=== PATIENT | female | born 1985 | race Two or more races ===

== ENCOUNTER 2024-11-06 21:43 | Emergency (ER) | payer BC, SELFPAY ==
--- NOTE | ~2024-11-06 | XR_ITS ---
EXAMINATION: XR chest 2V Exam Date/Time: 11/06/2024 22:01 CDT HISTORY: chest pain Comparison: None. RESULT: Lines, tubes, and devices: None. Lungs and pleura: Clear. Cardiomediastinal silhouette: Normal. Other: No acute osseous or upper abdominal finding. IMPRESSION: No acute cardiopulmonary process. Reviewed, dictated and finalized at location K.
--- NOTE | 2024-11-06 21:52 | ECG_ITS ---
Test Date: 2024-11-06 21:57:32 Measurements Intervals Ideal Rate: 109 P: 72 IA: 135 QRS: 76 QRSD: 73 T: 48 QT: 317 QTc: 427 Interpretive Statements SINUS TACHYCARDIA POSSIBLE LEFT ATRIAL ENLARGEMENT [-0.1mV P WAVE IN V1/V2] No previous ECG available for comparison Electronically Signed On 11-07-2024 14:45:35 CDT by Melquiades Valente M.D.
[2024-11-06 21:57] VITALS: BP 167/95; PULSE 102; RESP 16; TEMP 36.6; O2SAT 100
[2024-11-06 22:06] VITALS: O2SAT 100
[2024-11-06 22:10] LABS: Basophils Absolute Auto 0.1 K/mm3 (0.0-0.1); Basophils Percent Auto 0.6 % (0.2-1.2); Eosinophils Absolute Auto 0.2 K/mm3 (0-0.3); Eosinophils Percent Auto 1.9 % (0-4.4); Hematocrit 39.9 % (37.0-47.0); Hemoglobin 12.8 g/dL (12.0-15.0); Immature Granulocyte Absolute 0.02 K/mm3 (0.00-0.031); Immature Granulocyte Percent A 0.2 % (0-0.5); Lymphocytes Absolute Auto 3.52 K/mm3 (0.9-3.2); Lymphocytes Percent Auto 42.3 % (18.3-44.2); Mean Corpuscular HGB Conc 32.1 g/dl (32-36); Mean Corpuscular Hemoglobin 24.4 pg (26-34); Mean Corpuscular Volume 76.1 fl (80-100); Mean Platelet Volume 8.6 fl (7.4-10.4); Monocytes Absolute Auto 0.7 K/mm3 (0.1-0.6); Monocytes Percent Auto 8.1 % (2.6-8.5); Neutrophils Absolute Auto 3.9 K/mm3 (1.3-6.7); Neutrophils Percent Auto 46.9 % (45.5-73.1); Platelet Count Result 310 k/mm3 (150-375); Red Blood Count 5.24 M/mm3 (4.2-5.4); Red Cell Distribution Width 15.1 % (11.5-14.5); White Blood Count 8.3 K/mm3 (4.5-10.0)
[2024-11-06 22:23] LABS: Prothrombin Time 13.9 Seconds (11.1-14.7)
[2024-11-06 22:24] LABS: Partial Thromboplastin Time 33.1 Seconds (22.3-36.8)
[2024-11-06 22:26] LABS: Alanine Aminotransferase 33 U/L (6-35); Albumin Level 4.5 g/dL (3.5-5.1); Alkaline Phosphatase 81 U/L (38-126); Anion Gap 10 mmol/L (4-12); Aspartate Amino Transferase 34 U/L (14-36); Bilirubin,Total 0.4 mg/dL (0.2-1.3); Blood Urea Nitrogen 18 mg/dL (7-17); Calcium 9.4 mg/dL (8.4-10.2); Carbon Dioxide 25 mmol/L (22-30); Chloride 101 mmol/L (98-107); Estimated CRCL calculation 98 ml/min; Estimated Glomerular Filt Rate > 60; Glucose 103 mg/dL (65-110); Lipase 186 U/L (23-300); Potassium 3.5 mmol/L (3.4-5.0); Sodium 136 mmol/L (137-145)
[2024-11-06 22:38] LABS: Troponin I < 0.012 ng/mL (0.000-0.034)
[2024-11-06] MEDS: ASPIRIN 81 MG CHEWABLE TABLET 324 MG PO (22:40)
--- NOTE | 2024-11-06 22:53 | ED_ITS ---
HPI - Chest Pain General Chief Complaint: Chest Pain Stated Complaint: BP 169/95 Chest pain- intermittent stabbing Time Seen by Provider: 11/06/24 22:41 History of Present Illness HPI narrative: Patient is a 39-year-old female who presents emergency department this evening complaining of chest pain and heart palpitation. Patient states that the chest pain started earlier in the evening and the palpitations started approximately 1 hour ago when patient went to lay down and she felt her heart racing. Denies any similar symptoms in the past. Denies any history of cardiovascular disease. Patient admits that she does have a history of depression and takes medications for that. Denies any recent illness, any fevers or chills, any nausea vomiting or abdominal pain. No additional symptoms or concerns at this time. Related Data Home Medications ?Medication ?Instructions ?Recorded ?Confirmed ?Last Taken ?Type No Home Medications 11/06/24 11/06/24 Unknown History Allergies Allergy/AdvReac Type Severity Reaction Status Date / Time Penicillins Allergy Intermediate Rash Verified 11/06/24 21:59 Review of Systems 2 Review of Systems: All systems are reviewed and are negative unless stated otherwise in the HPI. Exam 2 Narrative: General: Alert, awake, afebrile, in no acute distress, anxious. HEENT: PERRL, no rhinorrhea, no post nasal drip, oropharynx clear. Neck: Trachea midline, no JVD, no lymphadenopathy. Cardiovascular: Regular rate and rhythm, no murmurs, rubs or gallops, no peripheral edema. Respiratory: Clear to auscultation bilaterally, no tachypnea, no wheezing, no rhonchi, no rubs, no respiratory distress. Abdomen: Soft, nontender, nondistended, no rebound, no guarding, no peritoneal signs. Musculoskeletal: No joint swelling or deformity, normal muscle tone. Skin: No rashes or petechia, no signs of infection. Psychiatric: Alert and oriented, normal behavior and judgment for situation. Neurological: Alert and oriented to person, place, and time. Follows all commands. No focal deficits, speech is clear and fluent. Course Vital Signs Vital signs: Vital Signs Temperature 98 F 11/06/24 21:57 Pulse Rate 102 H 11/06/24 21:57 Respiratory Rate 16 11/06/24 21:57 Blood Pressure 167/95 H 11/06/24 21:57 Pulse Oximetry 100 11/06/24 21:57 Oxygen Delivery Room Air 11/06/24 21:57 Temperature 98 F 11/06/24 21:57 Pulse Rate 102 H 11/06/24 21:57 Respiratory Rate 16 11/06/24 21:57 Blood Pressure 167/95 H 11/06/24 21:57 Pulse Oximetry 100 11/06/24 22:06 Oxygen Delivery Room Air 11/06/24 22:06 MDM - Chest Pain MDM Narrative Medical decision making narrative: The patient was evaluated by myself in the emergency department. History is obtained from patient who is an independent historian and physical exam was performed. External medical records were reviewed at this time. IV was established and pertinent tests were ordered. EKG was obtained which revealed sinus tachycardia rate of 109 beats per minute. No ST changes, T wave inversions or evidence of acute ischemia. EKG was independently interpreted by me and is currently pending official cardiology read. Laboratory results obtained revealing no acute process. 2 sets of troponins were obtained 3 hours apart and both noted to be negative. Imaging studies obtained included CXR which was independently interpreted by me revealing no acute cardiopulmonary process, which is pending final radiology interpretation. Differential diagnosis considerations include acute coronary syndrome, stress reaction, anxiety, infectious process such as pneumonia, acute viral syndrome. Comorbidities impacting this visit include none. I have evaluated and discussed social determinants of health with the patient that could potentially impact subsequent diagnosis and treatment plans. On repeat assessment of the patient, reevaluation revealed that the patient is doing well and is in no acute distress. Patient symptoms have improved since she arrived to our emergency department. Repeat vital signs were all reviewed and noted to be stable. Differential diagnosis and treatment plan were discussed with the patient at bedside. Patient agrees with discussion and after shared medical decision making agrees with discharge. All questions were answered to the patient's satisfaction. Patient will follow up with cardiology in 3-5 days. Patient was provided with strict return precautions and instructed to return to the emergency department if any new or worsening symptoms develop. The patient was discharged in stable condition. Lab Data 11/06/24 22:04 11/06/24 22:04 Labs: Lab Results 11/06/24 11/07/24 Range/Units 22:04 00:56 WBC 8.3 (4.5-10.0) K/mm3 RBC 5.24 (4.2-5.4) M/mm3 Hgb 12.8 (12.0-15.0) g/dL Hct 39.9 (37.0-47.0) % MCV 76.1 L (80-100) fl MCH 24.4 L (26-34) pg MCHC 32.1 (32-36) g/dl RDW 15.1 H (11.5-14.5) % Plt Count 310 (150-375) k/mm3 MPV 8.6 (7.4-10.4) fl Immature Gran % (Auto) 0.2 (0-0.5) % Neut % (Auto) 46.9 (45.5-73.1) % Lymph % (Auto) 42.3 (18.3-44.2) % [place] % (Auto) 8.1 (2.6-8.5) % Eos % (Auto) 1.9 (0-4.4) % Baso % (Auto) 0.6 (0.2-1.2) % Lymph # (Auto) 3.52 H (0.9-3.2) K/mm3 [place] # (Auto) 0.7 H (0.1-0.6) K/mm3 Eos # (Auto) 0.2 (0-0.3) K/mm3 Baso # (Auto) 0.1 (0.0-0.1) K/mm3 Abs Immat Gran (auto) 0.02 (0.00-0.031) K/mm3 Absolute Neuts (auto) 3.9 (1.3-6.7) K/mm3 Absolute Nucleated RBC 0.000 (0.0-0.012) K/mm3 Nucleated RBC % 0.0 (0.0-0.2) % PT 13.9 (11.1-14.7) Seconds INR 1.0 APTT 33.1 (22.3-36.8) Seconds Sodium 136 L (137-145) mmol/L Potassium 3.5 (3.4-5.0) mmol/L Chloride 101 (98-107) mmol/L Carbon Dioxide 25 (22-30) mmol/L Anion Gap 10 (4-12) mmol/L BUN 18 H (7-17) mg/dL Creatinine 0.71 (0.7-1.0) mg/dL Estim Creat Clear Calc 98 ml/min Estimated GFR > 60 (59 - ) Glucose 103 (65-110) mg/dL Calcium 9.4 (8.4-10.2) mg/dL Total Bilirubin 0.4 (0.2-1.3) mg/dL AST 34 (14-36) U/L ALT 33 (6-35) U/L Alkaline Phosphatase 81 (38-126) U/L Troponin I < 0.012 < 0.012 (0.000-0.034) ng/mL Total Protein 8.0 (6.3-8.2) g/dL Albumin 4.5 (3.5-5.1) g/dL Lipase 186 (23-300) U/L Discharge Plan Discharge Clinical Impression: Atypical chest pain, Heart palpitations Patient Disposition: Home, Self-Care Condition: Improved Instructions: Antibiotic Form, Chest Pain (ED) Additional Instructions: Please follow-up with the manager market research to a provided with today, call tomorrow to set up a follow-up appointment to be seen within the next 3-5 days. Return to the emergency department if any new or worsening symptoms develop. Patient Language: Swedish Prescriptions: No Action No Home Medications Follow-up/Referrals: PHYSICIAN NOT ON STAFF,NONSTAFF [Primary Care Provider] - Melquiades Valente MD [Physician] - 3 Days Time of Disposition: 01:58
[2024-11-06] MEDS: SODIUM CHLORIDE 0.9% IV 1,000 ML 999 ML IV CONT (23:05)
--- OUTSIDE RECORDS SUMMARY | 2024-11-06 23:06 | XMS_ITS | Clinical Summary ---
Author Organization [facility] Address [address] [place] [id number] Care Team Providers Care [employer]p [employer] Developer Name Role Phone Jodi Garcia MD Primary Care Provider [phone] Social History Tobacco Use Types Packs/Day Years Used Date Smoking Tobacco: Never Assessed Comments Unknown Sex and Gender Information Value Date Recorded Sex Assigned at Not on file Legal Sex Female 10:22 PM [employer]YE [employer] Gender Identity Not on file Sexual Orientation Not on file Plan of Treatment Health Maintenance Due Date Last Done Comments Cervical Cancer Screening Pa p Smear (Age 30 to 64) Every 3 Years 1986 Annual Physical 1989 Hepatitis C 2004 DTaP, Tdap and Td Vaccines ( 1 - Tdap) 2005 Hepatitis B Vaccines (1 of 3 - 19+ 3-dose series) 2005 Cervical Cancer Screening Pa p with HPV Testing (Age 30 to 64) Every 5 Years 2016 Cervical Cancer Screening with HPV 2016 COVID-19 Vaccine (2023-2 5 season) 2024 Influenza Adult (#1) 2024 HPV Vaccines Aged Out No longer eligi ble based on patient's age to complete this topic Meningococcal B Vaccine Aged Out No l onger eligible based on patient's age to complete this topic Meningococcal Vaccine Aged Out No grayson maranda eligible based on patient's age to complete this topic Pneumococcal Vaccine: Pediat rics (0 to 5 Years) and At-Risk Patients (6 to 64 Years) Aged Out No longer eligible b ased on patient's age to complete this topic RSV Immunizations Under 20 Months Aged Out No longer eligible based on patient's age to complete this topic Insurance [facility] Care Teams Php Magento Developer Relationship Specialty Start Date End Date Jodi Garcia MD [address] [place] [address] [place] [address] PCP - General FAMILY PRACTICE 02/17/22
--- OUTSIDE RECORDS SUMMARY | 2024-11-06 23:06 | XMS_ITS | Data Portability ---
Author Organization [place] - [facility] [employer], Main Office Address [address] [place] [address] Assessment No assessment recorded. Plan of Treatment Reminders Order Date Submit Date Provider Last Modified By Organization Details Last Modified Time Details Appointments None recorded. Lab lipid panel, serum 2024 025 [facility] (Lab), [address] [place], [address], 5 14:25:29 TSH, serum or plasma 2024 025 [facility] (Lab), [address] [place], [address], 5 14:25:29 vitamin D, 25-hydroxy , total, serum 2024 025 [facility] (Lab), [address] [place], [address], 5 02:47:42 CMP, serum or plasma 2024 025 [facility] (Lab), [address] [place], [address], 5 02:47:42 glycohemog lobin, total, blood 2024 025 [facility] (Lab), [address] [place], [address], 5 14:25:30 iron + total iron-selena ng capacity (TIBC), serum 2024 025 [facility] (Lab), [address] [place], [address], 5 14:25:30 CBC w/ auto diff 2024 025 [facility] (Lab), [address] [place], [address], 5 14:25:29 vitamin D, 25-hydroxy , total, serum 2022 024 [email or web address] Not available 4 16:00:01 bacterial vaginosis + vaginitis panel, vaginal - Yeast, BV 2022 023 [email or web address] [facility] (Lab), [address] [place], [address], 3 17:44:45 urinalysis , dipstick 2022 023 [facility] [address], [place], [address], 3 12:58:07 lipid panel, serum 2022 023 [email or web address] [facility] (Lab), [address] [place], [address], 3 12:59:47 CMP, serum or plasma 2022 023 [email or web address] 1 [facility] (Lab), [address] [place], [address], 3 12:58:56 HbA1c (hemoglobi n A1c), blood 2022 023 [email or web address] 1 [facility] (Lab), [address] [place], [address], 3 12:59:15 CBC 2022 023 [email or web address] 1 [facility] (Lab), [address] [place], [address], 3 13:00:06 iron + TIBC + ferritin, serum 2022 023 [email or web address] 1 [facility] (Lab), [address] [place], [address], 3 13:00:26 TSH, serum, reflex free T4 2022 023 [email or web address] 1 [facility] (Lab), [address] [place], [address], 3 13:00:50 vitamin B12 + folate, serum or blood 2022 023 [email or web address] 1 [facility] (Lab), [address] [place], [address], 3 13:01:07 vitamin D, 25-hydroxy , total, serum 2022 023 [email or web address] 1 [facility] (Lab), [address] [place], [address], 3 13:01:[address] referral 2022 023 HIREN Felipe, [address], [place], [address], 3 10:39:46 Procedures None recorded. Surgeries None recorded. Imaging MAMMO, screening, digital, bilateral - Please call patient to schedule. 2024 025 [facility] ([facility] Sched[facility]), [address] [place], [address], 5 09:31:15 MAMMO, screening, digital, bilateral - family h/o early breast cancer 2022 023 [email or web address] [id number] Not available 3 08:57:49 Medication Orders ergocalcif addie (vitamin D2) 1,250 mcg (50,000 unit) capsule 2024 025 [id number], [address], [place], [place], [id number], 5 14:25:27 lisinopril 10 mg tablet 2024 025 [facility] #[id number], [address], [place], [place], [id number], 5 14:25:25 metronidaz ole 500 mg tablet [email or web address]armacy #[id number], [address], [address], 3 16:00:08 fluconazol e 150 mg tablet 2022 023 [email or web address] [facility]/Pharmacy #[id number], [address], [address], 3 16:00:10 Patient TargetsNo targets recorded. Patient InstructionsNo instructions recorded. 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 Referring Physician: Cathy Del Cid, Family Medicine, Encounter Date: 02/26/2023 Results Created Date Observation Date Name Description Value Unit Range Abnormal Flag Note LastModifiedBy Organization Detail LastModifiedTime 09/17/1909/17/2022 urina lysis , dipst ick Leukocytes (reference range: negative colette/ l) Negati ve Not Available [email or web address] [address] , [place], [address], 09/17/2022 11:37:48 09/17/1909/17/2022 urina lysis , dipst ick Nitrite (reference rage: negative mg/dl) negati ve Not Available [address] , [place], [address], 09/17/2022 11:37:48 09/17/19 23 09/17/2022 urina lysis , dipst ick Urobilinogen (reference range: 0.2-1 mg/dl) 0.2 Not Available [address], [place], [address], 09/17/2022 11:37:48 09/17/1909/17/2022 urina lysis , dipst ick Protein (reference range: negative mg/dl) Trace Not Available [address] , [place], [address], 09/17/2022 11:37:48 09/17/1909/17/2022 urina lysis , dipst ick pH (reference range: 5-7) 6.0 Not Available [address] , [place], [address], 09/17/2022 11:37:48 09/17/1909/17/2022 urina lysis , dipst ick Blood (reference range: negative Marino/ l) Hemoly zed: Trace Not Available [address], [place], [address], 09/17/2022 11:37:48 09/17/1909/17/2022 urina lysis , dipst ick Specific [place] (reference range: 1.005-1.030) 1.025 Not Available [place] [address], [place], [address], 09/17/2022 11:37:48 09/17/1909/17/2022 urina lysis , dipst ick Ketone (reference range: negative mg/dl) Negati ve Not Available [address] , [place], [address], 09/17/2022 11:37:48 09/17/19 23 09/17/2022 urina lysis , dipst ick Bilirubin (reference range: negative mg/dl) Negati ve Not Available [address] , [place], [address], 09/17/2022 11:37:48 09/17/1909/17/2022 urina lysis , dipst ick Glucose (reference range: negative mg/dl) Negati ve Not Available [address] , [place], [address], 09/17/2022 11:37:48 09/17/19 23 09/17/2022 urina lysis , dipst ick Appearance Clear Not Available [address] , [place], [address], 09/17/2022 11:37:48 09/17/19 23 09/17/2022 urina lysis , dipst ick Color Dark Yellow Not Available [address] , [place], [address], 09/17/2022 11:37:48 09/17/19 23 09/18/2022 URINA LYSIS COMPL ETE/I RIS W/RFX leukocytes negati ve colette/u L negati ve- Not Available [facility] (Lab) [address] [place], [address], 09/18/2022 14:58:12 09/17/19 23 09/18/2022 URINA LYSIS COMPL ETE/I RIS W/RFX color yellow Not Available [facility] (Lab) [address] [place], [address], 09/18/2022 14:58:12 09/17/19 23 09/18/2022 URINA LYSIS COMPL ETE/I RIS W/RFX appear turbid abnormal Not Available [facility] (Lab) [address] [place], [address], 09/18/2022 14:58:12 09/17/19 23 09/18/2022 URINA LYSIS COMPL ETE/I RIS W/RFX specific gravity 1.030 1.001- 1.030 Not Available [facility] (Lab) [address] [place], [address], 09/18/2022 14:58:12 09/17/19 23 09/18/2022 URINA LYSIS COMPL ETE/I RIS W/RFX pH 5.5 pH_un its 5.0-9. 0 Not Available [facility] (Lab) [address] [place], [address], 09/18/2022 14:58:12 09/17/19 23 09/18/2022 URINA LYSIS COMPL ETE/I RIS W/RFX nitrite negati ve negati ve- Not Available [facility] (Lab) [address] [place], [address], 09/18/2022 14:58:12 09/17/19 23 09/18/2022 URINA LYSIS COMPL ETE/I RIS W/RFX protein 20 mg/dL negati ve- abnormal Not Available [facility] (Lab) [address] [place], [address], 09/18/2022 14:58:12 09/17/19 23 09/18/2022 URINA LYSIS COMPL ETE/I RIS W/RFX glucose normal mg/dL normal - Not Available [facility] (Lab) [address] [place], [address], 09/18/2022 14:58:12 09/17/19 23 09/18/2022 URINA LYSIS COMPL ETE/I RIS W/RFX ketones negati ve mg/dL negati ve- Not Available [facility] (Lab) [address] [place], [address], 09/18/2022 14:58:12 09/17/19 23 09/18/2022 URINA LYSIS COMPL ETE/I RIS W/RFX urobilinogen normal mg/dL normal - Not Available [facility] (Lab) [address] [place], [address], 09/18/2022 14:58:12 09/17/19 23 09/18/2022 URINA LYSIS COMPL ETE/I RIS W/RFX bilirubin negati ve mg/dL negati ve- Not Available [facility] (Lab) [address] [place], [address], 09/18/2022 14:58:12 09/17/19 23 09/18/2022 URINA LYSIS COMPL ETE/I RIS W/RFX blood 0.03 mg/dL negati ve- abnormal Not Available [facility] (Lab) [address] [place], [address], 09/18/2022 14:58:12 09/17/19 23 09/18/2022 URINA LYSIS COMPL ETE/I RIS W/RFX white blood cells 0-8 /i??h pfi?? 0-8 Not Available [facility] (Lab) [address] [place], [address], 09/18/2022 14:58:12 09/17/19 23 09/18/2022 URINA LYSIS COMPL ETE/I RIS W/RFX red blood cells 0-4 /i??h pfi?? 0-4 Not Available [facility] (Lab) [address] [place], [address], 09/18/2022 14:58:12 09/17/19 23 09/18/2022 URINA LYSIS COMPL ETE/I RIS W/RFX bacteria occasi onal abnormal Not Available [facility] (Lab) [address] [place], [address], 09/18/2022 14:58:12 09/17/19 23 09/18/2022 URINA LYSIS COMPL ETE/I RIS W/RFX mucous few /i??l pfi?? abnormal Not Available [facility] (Lab) [address] [place], [address], 09/18/2022 14:58:12 09/17/19 23 09/18/2022 URINA LYSIS COMPL ETE/I RIS W/RFX squamous epithelial packed field /i??l pfi?? abnormal Not Available [facility] (Lab) [address] [place], [address], 09/18/2022 14:58:12 09/17/19 23 09/17/2022 URINA LYSIS COMPL ETE/I RIS W/RFX leukocytes negati ve colette/u L negati ve- Not Available [facility] (Lab) [address] [place], [address], 09/17/2022 20:01:36 09/17/19 23 09/17/2022 URINA LYSIS COMPL ETE/I RIS W/RFX nitrite negati ve negati ve- Not Available [facility] (Lab) [address] [place], [address], 09/17/2022 20:01:36 09/17/19 23 09/17/2022 URINA LYSIS COMPL ETE/I RIS W/RFX protein 20 mg/dL negati ve- abnormal Not Available [facility] (Lab) [address] [place], [address], 09/17/2022 20:01:36 01/19/20 23 09/17/2022 URINA LYSIS COMPL ETE/I RIS W/RFX glucose normal mg/dL normal - Not Available [facility] (Lab) [address] [place], [address], 09/17/2022 20:01:36 09/17/19 23 09/17/2022 URINA LYSIS COMPL ETE/I RIS W/RFX ketones negati ve mg/dL negati ve- Not Available [facility] (Lab) [address] [facility] [place], [address], 09/17/2022 20:01:36 09/17/19 23 09/17/2022 URINA LYSIS COMPL ETE/I RIS W/RFX urobilinogen normal mg/dL normal - Not Available [facility] (Lab) [address] [place], [address], 09/17/2022 20:01:36 09/17/19 23 09/17/2022 URINA LYSIS COMPL ETE/I RIS W/RFX bilirubin negati ve mg/dL negati ve- Not Available [facility] (Lab) [address] [place], [address], 09/17/2022 20:01:36 09/17/19 23 09/17/2022 URINA LYSIS COMPL ETE/I RIS W/RFX blood 0.03 mg/dL negati ve- abnormal Not Available [facility] (Lab) [address] [place], [address], 09/17/2022 20:01:36 09/17/19 23 09/17/2022 URINA LYSIS COMPL ETE/I RIS W/RFX white blood cells 0-8 /i??h pfi?? 0-8 Not Available [facility] (Lab) [address] [place], [address], 09/17/2022 20:01:36 0109/17/2022 URINA LYSIS COMPL ETE/I RIS W/RFX red blood cells 0-4 /i??h pfi?? 0-4 Not Available [facility] (Lab) [address] [place], [address], 09/17/2022 20:01:36 09/17/19 23 09/17/2022 URINA LYSIS COMPL ETE/I RIS W/RFX bacteria occasi onal abnormal Not Available [facility] (Lab) [address] [place], [address], 09/17/2022 20:01:36 09/17/19 23 09/17/2022 URINA LYSIS COMPL ETE/I RIS W/RFX mucous few /i??l pfi?? abnormal Not Available [facility] (Lab) [address] [facility] [place], [address], 09/17/2022 20:01:36 09/17/19 23 09/17/2022 URINA LYSIS COMPL ETE/I RIS W/RFX squamous epithelial packed field /i??l pfi?? abnormal Not Available [facility] (Lab) [address] [place], [address], 09/17/2022 20:01:36 09/17/19 23 09/17/2022 URINA LYSIS COMPL ETE/I RIS W/RFX pH 5.5 pH_un its 5.0-9. 0 Not Available [facility] (Lab) [address] [place], [address], 09/17/2022 20:01:36 09/17/19 23 09/17/2022 URINA LYSIS COMPL ETE/I RIS W/RFX color yellow Not Available [facility] (Lab) [address] [place], [address], 09/17/2022 20:01:36 09/17/19 23 09/17/2022 URINA LYSIS COMPL ETE/I RIS W/RFX appear turbid abnormal Not Available [facility] (Lab) [address] [facility] [place], [address], 09/17/2022 20:01:36 09/17/19 23 09/17/2022 URINA LYSIS COMPL ETE/I RIS W/RFX specific gravity 1.030 1.001- 1.030 Not Available [facility] (Lab) [address] [place], [address], 09/17/2022 20:01:36 02/27/20 23 02/26/2023 urina lysis , dipst ick Leukocytes (reference range: negative colette/ l) Small Not Available [address], [place], [address], 02/26/2023 12:12:21 02/27/20 23 02/26/2023 urina lysis , dipst ick Nitrite (reference rage: negative mg/dl) negati ve Not Available [address], [place], [address], 02/26/2023 12:12:21 02/27/20 23 02/26/2023 urina lysis , dipst ick Urobilinogen (reference range: 0.2-1 mg/dl) 0.2 Not Available [address], [place], [address], 02/26/2023 12:12:21 02/27/20 23 02/26/2023 urina lysis , dipst ick Protein (reference range: negative mg/dl) Modera te Not Available [address], [place], [address], 02/26/2023 12:12:21 02/27/20 23 02/26/2023 urina lysis , dipst ick pH (reference range: 5-7) 7.0 Not Available [address], [place], [address], 02/26/2023 12:12:21 02/27/2002/26/2023 urina lysis , dipst ick Blood (reference range: negative Marino/ l) Hemoly zed: Trace Not Available [address], [place], [address], 02/26/2023 12:12:21 02/27/20 23 02/26/2023 urina lysis , dipst ick Specific [place] (reference range: 1.005-1.030) 1.030 Not Available [address], [place], [address], 02/26/2023 12:12:21 02/27/20 23 02/26/2023 urina lysis , dipst ick Ketone (reference range: negative mg/dl) Negati ve Not Available [address], [place], [address], 02/26/2023 12:12:21 02/27/20 23 02/26/2023 urina lysis , dipst ick Bilirubin (reference range: negative mg/dl) Negati ve Not Available [address], [place], [address], 02/26/2023 12:12:21 02/27/2002/26/2023 urina lysis , dipst ick Glucose (reference range: negative mg/dl) Negati ve Not Available [address], [place], [address], 02/26/2023 12:12:21 02/27/20 23 02/26/2023 urina lysis , dipst ick Appearance Clear Not Available [address], [place], [address], 02/26/2023 12:12:21 02/27/20 23 02/26/2023 urina lysis , dipst ick Color Yellow Not Available [facility] [address], [place], [address], 02/26/2023 12:12:21 Result Notes None recorded. 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 Active 2021 borderline Not Available [facility] 3 08:56:57 Dysuria 77455060 Active 2022 Not Available [facility] 3 08:56:58 Vaginitis 40785200 Active 2022 JONN Quigley [address], [place], [address] , [facility] 3 12:11:44 Fatigue 30868834 Active 2022 JONN Quigley [address], [address], [place], [address] , [facility] 3 12:16:37 Candidias is of vagina 86866034 Active 2022 JONN Quigley [address], [address], [place], [address] , [facility] 3 12:18:26 Bacterial vaginosis 853013601 Active 2022 JONN Quigley [address], [address], [place], [address] , [facility] 3 12:18:42 Vitamin D deficienc y 54510478 Active 2022 JONN Quigley [address], [address], [place], [address] , [facility] 3 12:06:45 COVID-19 002430069 Active 2022 JONN Quigley [address] [facility], [facility] [address], [place], [address] , [employer] [facility] [facility] 3 11:00:27 Depressiv e disorder 33953900 Active 2023 Jodi Garcia MD [address] [facility], [facility] [address], [place], [address] , [employer] [facility] 4 17:47:08 Essential hypertens ion 69831407 Active 2024 MIRI Cannon [address] [facility], [address] [place] [address], [place], [address] , [employer] 5 14:13:52 Headache 29474045 Active 2024 MIRI Cannon [address] [facility], [address] [address], [place], [address] , [employer] 5 14:18:53 Iron deficienc y anemia 40386910 Active 2024 MIRI Cannon [address] [facility], [address] [address], [place], [address] , [employer] 5 14:19:52 Problem Notes None recorded. Medical Equipment None Reported. Allergies Allergen ID Allergen Name Allergen Category Reaction Reaction Severity Criticality Documentation Date Start Date Code Code System Note Provider Name and Address Organization Details Recorded Time 67351 Product containin g penicilli n (product) medicatio n rash Not available Not available 10/29/2022 75609 8001 SNOMED Not Available [facility] 3 01:00:31 04842 penicilla mine medicatio n Not available Not available Not available 10/29/2022 7975 RxNorm Not Available [facility] 3 01:00:31 Medications Name Sig Start Date Stop Date Status Note LastModified by Organization Details LastModified Time ofloxacin 0.3 % eye drops INSTILL 10 DROPS INTO AFFECTED EAR(S) DAILY FOR 7 DAYS 02/16 completed Not Available Not Available Not Available fluconazole 150 mg tablet TAKE 1 TABLET NOW, THEN REPEAT IN 72 HOURS IF NEEDED 04/13 completed Not Available Not Available Not Available prednisone 20 mg tablet TAKE 2 TABLETS BY MOUTH DAILY FOR 5 DAYS 11/02 completed Not Available Not Available Not Available metronidazo le 500 mg tablet TAKE 1 TABLET BY MOUTH EVERY 12 HOURS FOR 7 DAYS 04/13 completed Not Available Not Available Not Available sulfamethox azole 800 mg-trimetho prim 160 mg tablet Take 1 tablet every 12 hours by oral route for 3 days. 02/26 completed Not Available Not Available Not Available benzonatate 100 mg capsule TAKE ONE CAPSULE BY MOUTH THREE TIMES DAILY FOR 10 DAYS 11/02 completed Not Available Not Available Not Available nystatin 100,000 unit/gram topical cream APPLY TO THE AFFECTED AREA(S) BY TOPICAL ROUTE 2 TIMES PER DAY prn 02/26 completed Not Available Not Available Not Available lisinopril 10 mg tablet Take 1 tablet every day by oral route as directed for 90 days. 2024 active Not Available Not Available Not Avai lable ergocalcife rol (vitamin D2) 1,250 mcg (50,000 unit) capsule Take 1 capsule every week by oral route as directed for 84 days. 2024 active Not Available Not Available Not Avai lable bupropion HCl XL 150 mg 24 hr tablet, extended release TAKE 1 TABLET BY MOUTH EVERY DAY 11/02 completed Not Available Not Available Not Available cholecalcif addie (vitamin D3) 1,250 mcg (50,000 unit) capsule TAKE 1 CAPSULE BY MOUTH EVERY WEEK 11/02 completed Not Available Not Available Not Available Paxlovid 300 mg (150 mg x 2)-100 mg tablets in a dose pack TAKE ACCORDING TO PACKAGE DIRECTION S 04/13 completed Not Available Not Available Not Available Vitals Date Recorded Body height Provider Name an d Address Organization Details Last Updated DateTime 09/17/2022 167.64 cm Not Available [facility] 3 00:58:12 Date Recorded Body height Body mass index (BMI) Body weight Body temperature Heart rate Oxygen saturation Oxygen saturation in Arterial blood by Pulse oximetry Systolic blood pressure Diastolic blood pressure Provider Name and Address Organization Details Last Updated DateTime 3 167.64 cm 29.7 kg/m2 53637 g 98.4 [degF] 93 /min 98 % 98 % 122 mm[Hg] 78 mm[Hg] Prerna Velez MA [facility] 3 11:52:03 Date Recorded Body height Body mass index (BMI) Body weight Body temperature Oxygen saturation Oxygen saturation in Arterial blood by Pulse oximetry Heart rate Systolic blood pressure Diastolic blood pressure Provider Name and Address Organization Details Last Updated DateTime 3 167.64 cm 30 kg/m2 75119.1 8 g 97.1 [degF] 98 % 98 % 97 /min 140 mm[Hg] 72 mm[Hg] Bree Curran RN [facility] [facility] 3 15:57:25 Date Recorded Body height Body mass index (BMI) Body weight Body temperature Oxygen saturation Oxygen saturation in Arterial blood by Pulse oximetry Heart rate Systolic blood pressure Diastolic blood pressure Provider Name and Address Organization Details Last Updated DateTime 4 167.64 cm 28.2 kg/m2 88042.6 6 g 96.4 [degF] 98 % 98 % 71 /min 138 mm[Hg] 80 mm[Hg] Mely Berg RN [facility] 4 09:36:08 Date Recorded Body weight Body mass index (BMI) Body height Body temperature Heart rate Respiratory rate Oxygen saturation Oxygen saturation in Arterial blood by Pulse oximetry Pain severity - 0-10 verbal numeric rating [Score] - Reported Systolic blood pressure Diastolic blood pressure Provider Name and Address Organization Details Last Updated DateTime 5 99201.4 8 g 27.9 kg/m2 167.64 cm 97.6 [degF] 81 /min 20 /min 99 % 99 % 5 140 mm[Hg] 90 mm[Hg] Jennifer Lynch RN [facility] 5 14:06:49 Social History Question Answer Notes LastModified by Organizat ion Details LastModified Time Tobacco Smoking Status Never Smoker Guera almanzar [facility] 09/07/2023 09:28:51 Do You Have An Advance Directive? No Information not available 11/02/2024 What Is Your Level Of Alcohol Consumption? Occasional [id number] Information not available 10/29/2022 What Is Your Level Of Caffeine Consumption? Heavy [id number] Information not available 10/29/2022 In The 14 Days Before Symptom Onset, Have You Had Close Contact With A Laboratory-confir med COVID-19 While That Case Was Ill? No [email or web address] Information not available 09/07/2023 In The 14 Days Before Symptom Onset, Have You Had Close Contact With A Person Who Is Under Investigation For COVID-19 While That Person Was Ill? No [email or web address] Information not available 09/07/2023 Are You Currently Employed? Yes Information not available 11/02/2024 What Type Of Diet Are You Following? CARBOHYDRATE [id number] Information not available 10/29/2022 What Is Your Occupation? [employer] Information not available 11/02/2024 Have There Been Any Changes To Your Family Or Social Situation? No Information no t available 11/02/2024 Do You Use Insect Repellent Routinely? Yes Information not available 11/02/2024 Where Do You Live? Apartment Information not available 11/02/2024 What Was The Date Of Your Most Recent Tobacco Screening? 04/13/2023 [email or web address] Information not available 09/07/2023 How Many Children Do You Have? 0 Information not available 11/02/2024 Have You Ever Been Counseled For Unhealthy Alcohol Use? No Information not available 09/07/2023 Do You Have Any Pets? Yes Information not available 11/02/2024 What Is Your Relationship Status? Domestic Partner [id number] Information not available 10/29/2022 Do You Use Your Seat Belt Or Car Seat Routinely? Yes [email or web address] Information not available 09/07/2023 Do You Have Smoke And Carbon Monoxide Detectors In Your Home? Yes Information not available 11/02/2024 Are You Passively Exposed To Smoke? No Information no t available 11/02/2024 Are There Any Smokers In Your House? No Information not available 11/02/2024 Do You Participate In Social Media? No [email or web address] Information not available 09/07/2023 Do You Feel Stressed (tense, Restless, Nervous, Or Anxious, Or Unable To Sleep At Night)? [id number] [email or web address] Information not available 09/07/2023 Do You Use Any Illicit Or Recreational Drugs? No [email or web address] Information not available 09/07/2023 Do You Use Sunscreen Routinely? Yes Information not available 11/02/2024 Has Tobacco Cessation Counseling Been Provided? No [email or web address] Information not available 09/07/2023 Have You Recently Traveled Abroad? Yes [email or web address] Information not available 09/07/2023 Do You Have Any Dietary Restrictions? No Information not available 09/07/2023 Do You Or Have You Ever Used Any Other Forms Of Tobacco Or Nicotine? No Information not available 09/07/2023 Sex: Unknown Functional Status Question Answer Note LastModified by Organizat ion Details LastModified Time What is your exercise level? Moderate [id number] Information not available 10/29/2022 Mental Status None recorded. Family History Relationship Description Onset Age of this Age Resolved Age Notes LastModified by Organization Details LastModified Time Paternal Aunt Diabetes mellitus [id number] Not available 10/29/2022 00:57:54 Mother Hypertensive disorder [id number] Not available 10/29/2022 00:57:54 Mother Cardiac septal defects [email or web address] Not available 2023 09:28:50 Mother Pulmonary hypertension 56 [email or web address] Not available 04/2024 09:28:51 Father Hypertensive disorder [id number] Not available 10/29/2022 00:57:54 Maternal Aunt Malignant tumor of breast [email or web address] Not available 2023 09:28:51 Maternal Aunt Malignant tumor of breast [email or web address] Not available 2023 09:28:51 Medical History No medical history recorded. Gynecological History Statement/Question Response Abnormal Pap N Flow Moderate Date of LMP 10/16/2024 STIs/STDs N Dislike of Light during Menstrual Headac he Y Date of Last Pap 11/04/2010 Duration of Flow (days) 5 Current Control Method None Breast Problems no How many live births 0 Frequency of Cycle (Q days) 5 Sexually Active? Y Menses Monthly Y Discharge no Obstetrics History GPAL:G 0 P 0 0 0 0 Immunizations Vaccine Type Date Status Note Provider Nam e and Address Organization Details Recorded Time COVID-19, mRNA, LNP-S, bivalent, PF, 50 mcg/0.5 mL or 25mcg/0.25 mL dose 01/10/2023 completed Jennifer Lynch RN [facility], [facility] [employer] [facility] 11/02/2024 13:59:28 Past Encounters Encounter ID Performer Location Encounter Start Date Encounter Closed Date Diagnosis/Indication Diagnosis SNOMED-CT Code Diagnosis ICD10 Code Diagnosis Note [id number] [address] [place] [address] 02/16/2022 00:00:00 02/26/2022 09:10:[id number] [place] [address] 04/01/2022 00:00:00 04/27/2022 20:14:[id number] [place] [address] 09/17/2022 00:00:00 09/17/2022 18:12:17 [id number] JONN Quigley [address] [place] [address] 02/26/2023 11:43:26 02/26/2023 12:40:21 Vaginitis 41724703 N76.0 Itching/bu rning. Some dysuria.Dulce fraga also mentions a LLQ pain, which I cannot differenti ate at this time if it is more pelvic related. She denies any other GI related symptoms.W ill check urine and get vaginal swab. No concern for STDs per patient.Dulce fraga has also not had well woman exam in about 10 years. Will send referral to continue care and evaluate current symptoms further. Diabetes m ellitus screening 163712170 Z13.1 Hyperlipid emia screening 014223081 Z13.220 Fatigue 60396087 R53.83 Will get labs ro r/o physiologi c causes.If all normal, will then discuss lifestyle changes and anxiety further. Candidiasis of vagina 72 118760 B37.31 [id number] Jodi Garcia MD [facility] [address] [place] [address] 04/13/2023 15:51:29 04/13/2023 16:14:07 Adult health examination 109481456 Z00.00 Fasting labs done 01/2023Flu vaccine yearlyCovi d booster this fallNeeds pap-will return for this vs make appt with gynMammogr am order given, has family h/o early breast cancer. 2 paternal aunts with breast cancer in their 40s. Will get baseline mammogram. Discussed that there can be risk of false positive leading to f/u imaging or invasive procedure like biopsy Screening mammography 24 784071 Z12.31 Z80.3 Vitamin D deficiency 347 37175 E55.9 continue weekly vitamin drecheck labs in 4 months [id number] DANTE Ortiz [facility] Primary Care [facility] [address] [place] [address] 09/07/2023 09:27:58 09/07/2023 11:31:16 Depressive disorder 03370021 F32.A -has been an issue for a long time-Pt was started on wellbutryi n yesterday per this office, has not yet started the med-Has taken wellbutryi n in the past at 150mg dosage with positive results-dulce fraga is doing therapy one time/week for the last 3 years-Manjit es SI/HI-depr ession has been affecting her sleep recently-d eclines trying medication for insomnia [id number] MIRI Cannon [facility] [address] [address] 11/02/2024 13:45:49 11/02/2024 15:24:50 Adult health examination 905190493 Z00.00 Patient overall healthyHea lth maintenanc e reviewedDi scussed diet and exercisePa tient questions answered Essential hypertension 81912152 I10 Newly onset, home BPs 140-150s/9 0s [place] for malignant neoplasm of breast 8799804509 84435 Z91.89 Sig family history, aunts all diagnosed mid 30s-40s Headache 50089276 R51.9 More frequent lately, requiring medication s to manage Iron defic iency anemia 93273794 D50.9 excessive fatigue Vitamin D deficiency 347 62976 E55.9 excessive fatigue Diabetes m ellitus screening 712367567 Z13.1 Fatigue 21564741 R53.83 Hyperlipid emia screening 986323001 Z13.220 Health Concerns Section Related Observation LastModified by Organization Detai ls LastModified Time None Recorded Concern Status LastModified by Organization Details LastModified Time None Recorded Advance Directives Directive N: Payers Encounter Date Sequence Insurance Name Policy Number Policy Augustine Covered Member ID Augustine Member ID Guarantor Name 02/26/2023 1 [place] [id number] [employer] [id number] [employer] V [employer] 04/13/2023 1 [place] [id number] [employer] [id number] [employer] 09/07/2023 1 [place] [id number] [employer] [id number] [employer] V Mg 11/02/2024 1 [place] [id number] V[employer]ha V Mg [id number] [employer] Notes Date Note Type Note Provider Name and Address Organization Details Recorded Time 02/26/2023 text/html Pt. here with multiple complaints.She states she has had some vaginal discomfort for a couple months, back in september she was given fluconazole, metronidazole and nystatin cream. She has noticed itching around the area, no discharge or odors. She states deep inside there is a burning pain. No concern for STDS. She has not had a pap in at least 10 years. She states urine is a little cloudy and has noticed some burning. She has also noticed left lower abdominal pain, states she feels bloated and like it is a twitching pain. Has been present for a few months. She has also noticed increased fatigue. She does admit to not sleeping enough, states she works a lot of hours. JONN Quigley [address] [facility], [place], [address], [facility] [employer] 02/26/2023 12:31:11 04/13/2023 text/html Here for wellnes s exam. Feeling significantly better on weekly prescription vitamin d, less fatigue Jodi Garcia MD [address], [place], [address], [employer] 04/13/2023 16:16:20 09/07/2023 text/html Pt is here to discuss depression DANTE Ortiz [address], [place], [address], [employer] 09/07/2023 09:55:07 11/02/2024 text/html [employer] is a 39 year old female patient here today to establish care. Went to 2 weeks ago for upper respiratory infection, was noted to have hypertension and lymphadenopathy. Notes that her home blood pressure have been averaging 140-150/90s Notes excessive fatigue, is taking vitamin D3 and multivitamin Notes that after every meal she has abdominal pain and diarrhea. Flu shot: declinesCOVID vaccines: x2Tdap: recommendedMammogra m: significant family history, has not hadWWE: dueColonoscopy: not indicated MIRI Cannon [address], [facility] [address], [place], [address], [employer] [facility] 11/02/2024 15:14:46 OBGyn Episode No OBEpisode recorded.
--- NOTE | 2024-11-06 23:12 | PC.NURSE ---
care and report given to JANE Vanessa. all questions answered.
[2024-11-07 01:25] LABS: Troponin I < 0.012 ng/mL (0.000-0.034)
[2024-11-07 02:21] VITALS: BP 138/84; PULSE 73; RESP 15; O2SAT 99
== END 2024-11-07 02:22 | disposition home or self-care (01) ==
PROVIDERS: Emergency Provider Emergency Medicine
DX: R07.89 Other chest pain (principal); R00.2 Palpitations; R00.0 Tachycardia, unspecified; R94.31 Abnormal electrocardiogram [ECG] [EKG]
CPT/HCPCS: 36415; 71046; 80053; 83690; 84484; 85025; 85610; 85730; 93005; 96360; 99284; A9270; J7030